=== PATIENT | male | born 1950 | race Caucasian/White ===

== ENCOUNTER 2021-02-14 16:46 | Observation (INO) | payer OTHER, BC ==
--- OUTSIDE RECORDS SUMMARY | 2021-02-14 16:54 | XMS REPORT | Continuity of Care Document ---
:1950 Author Organization [facility] t Address [address] [place] [address] Care Team Providers Name Role Phone Unavailable Unavailable Unavailable Problems Condition Condition Condition Status Onset Resolution Last Treating Co mments Source Name Details Category Date Date Treatment Clinician Date Pain in Pain in Diagnosis Active [facility] right [facility] shoulder shoulder l [facility] Acute gout Acute gout Problem Active [facility] left [facility] - knee, knee, [facility]oria unspecifie unspecifie l d cause d cause [facility] Impingemen Impingemen Diagnosis Active [facility] syndrome t syndrome Marzena kes - of right of right [facility] a shoulder shoulder l [facility] Acute pain Acute pain Problem Active [facility] left [facility] - knee knee [facility] Clinics Allergies, Adverse Reactions, Alerts Allergy Allergy Status Severity Reaction(s) Onset Inactive Treating Comm ents Source Name Type Date Date Clinician PCN Adverse Active Info Not [facility] Reaction Available [facility] Medications Ordered Filled Start Stop Current Ordering Indication Dosage Frequency Signature Comments Components Source Medication Medication Date Date Medication? Clinician (SIG) Name Name PredniSONE PredniSONE Yes Percy TAKE [address] [facility] TABLETS BY [facility] - MOUTH [facility] EVERY DAY l FOR 3 Outpati DAYS, 2 ent TABLETS Clinics DAILY FOR 3 DAYS, 1 TABLET DAILY FOR 3 DAYS Alprazolam Alprazolam Yes Percy (Schedule [facility] IV Drug) [facility] - TAKE 1 [facility]oria TABLET BY l MOUTH Outpati EVERY DAY ent NEEDED Clinics FOR ANXIETY Allopurinol Allopurinol Yes Percy [address] [facility] Clinics Metoprolol Metoprolol Yes Percy TAKE [address] [facility] Bright TABLET BY [facility] - ER ER MOUTH [facility] EVERY DAY l [facility] Telmisartan Telmisartan Yes Percy TAKE [address] [facility] TABLET BY [facility] - MOUTH [facility] EVERY DAY l [facility] ent Clinics Gabapentin Gabapentin Yes Percy TAKE [address] [facility] TABLET BY [facility] - MOUTH [facility] THREE l TIMES A [facility] DAY ent Clinics Procedures This patient has no known procedures. Encounters Start End Encounter Admission Attending Care Care Encounter Source Date/Time Date/Time Type Type Clinicians Facility Department ID 2019-03-31 2019-03-31 Outpatient Hakan Woods [id number] [facility] [address] 15[facility] 2019-03-04 2019-03-04 Outpatient Hakan Woods [id number] [address] 10:00:00 10:00:00 t [facility] - [facility] ent [facility] Results This patient has no known results.
--- NOTE | 2021-02-14 20:49 | RAD REPORT ---
EXAM DESCRIPTION: RAD - Chest Single View - 02/14/2021 8:41 pm CLINICAL HISTORY: COUGH COMPARISON: <Comparisons> FINDINGS: The left lung base is partially obscured. The heart size is within normal limits.No acute osseous abnormality. No significant pleural effusions or pneumothorax. IMPRESSION: Partial obscuration of the left lung base may be secondary to overlapping soft tissues/u nderpenetration versus an acute airspace process such as pneumonia.
--- NOTE | 2021-02-14 21:27 | RAD REPORT ---
EXAM DESCRIPTION: CT - Head C Spine Cap Wo Con - 02/14/2021 8:50 pm CLINICAL HISTORY: Trauma, head and neck injury. Chest, abdomen and pelvis pain. Pain;Weakness COMPARISON: No comparisons TECHNIQUE: CT head without contrast. CT cervical spine without contrast with coronal and sagittal reformatted images. CT chest, abdomen and pelvis without contrast with coronal and sagittal reformatted images of the spi ne. All CT scans are performed using dose optimization technique as appropriate and may include automated exposure control or mA/KV adjustment according to patient size. FINDINGS: CT HEAD WITHOUT CONTRAST: No intracranial hemorrhage, hydrocephalus or extra-axial fluid collection. No areas of brain edema o r midline shift. The paranasal sinuses and mastoids are clear. The calvarium is intact. CT CERVICAL SPINE WITHOUT CONTRAST: No fracture or subluxation. The prevertebral soft tissues are normal in thickness.Mild scattered mul tilevel cervical spondylosis with varying degrees of neural foraminal narrowing. No central spinal st enosis identified. CT CHEST, ABDOMEN, PELVIS WITHOUT CONTRAST: NOTE: Lack of contrast is a significant limitation in the assessment of trauma related findings. Spec ifically, solid organ, vascular and bowel evaluation is significantly limited. The lungs are clear.No pneumothorax or pericardial/pleural fluid. Coronary artery calcifications. No evidence of intra-abdominal visceral injury, free fluid or free air is seen within the above detai led limitations. Infrarenal abdominal aortic aneurysm measuring 4.1 centimeters. Absent left kidney. Prostatomegaly. Bladder thickening likely related to chronic bladder outlet obstruction. No concerning pelvic findings. No fractures. IMPRESSION: 1. Negative for acute traumatic findings within the above detailed limitations. 2. 4.1 centimeter infrarenal abdominal aortic aneurysm. Recommend 12 month follow-up CT to assess for stability.
--- NOTE | 2021-02-14 22:03 | RAD REPORT ---
EXAM DESCRIPTION: RAD - Knee Right 3 View - 02/14/2021 9:56 pm CLINICAL HISTORY: PAIN COMPARISON: No comparisons FINDINGS: No right knee fracture or malalignment identified. No knee effusion. No significant focal degenerative changes. IMPRESSION: No acute osseus abnormality involving the right knee.
[2021-02-14 22:11] LABS: Absolute Lymphocytes (CBC) 1.4 K/uL (0.7-4.9); Basophils % 0.7 % (0-1.3); Hematocrit 42.5 % (39.6-49.0); Lymphocytes % 26.9 % (15.3-44.8); MPV 7.3 fL (7.6-11.3); Protime INR 1.07
[2021-02-14 22:23] LABS: Urine Blood Negative (Negative); Urine Glucose Negative (Negative); Urine Protein Negative (Negative); Urine pH 5.5 (5.0-7.0)
[2021-02-14 22:26] LABS: ALT/SGPT 22 U/L (12-78); AST/SGOT 41 U/L (15-37); Albumin 3.4 g/dL (3.4-5.0); Alkaline Phosphatase 67 U/L (45-117); BUN Blood Urea Nitrogen 17 mg/dL (7-18); Bicarbonate 29 mmol/L (21-32); Bilirubin Direct 0.7 mg/dL (0-0.2); Bilirubin Total 1.4 mg/dL (0.2-1.0); Glucose Level 110 mg/dL (74-106); Magnesium 2.3 mg/dL (1.8-2.4); NT PRO-BNP 98 pg/mL (<125); Potassium 4.3 mmol/L (3.5-5.1); Protein, Total 7.6 g/dL (6.4-8.2); Sodium Level 136 mmol/L (136-145); Troponin (Emerg Dept Use Only) < 0.02 ng/mL (0.0-0.045)
--- NOTE | 2021-02-14 22:30 | EDPHYS ---
Physician Documentation [facility] Name: Maci West Age: 70 yrs Sex: Male : 1950 Arrival Date: 02/14/2021 Time: 16:51 Bed 16 Private MD: Orly Galindo H ED Physician Delio Vicente HPI: 02/14 20:31 This 70 yrs old Male presents to ER via Wheelchair with complaints of General izabel Weakness, Dizziness, imbalance, bowel problem. 20:31 The patient presents with dizziness, generalized weakness, feeling off balance. Onset: izabel The symptoms/episode began/occurred 1 month(s) ago. Context: occurred at an unknown location. Modifying factors: The symptoms are alleviated by nothing, the symptoms are aggravated by changing position. Associated signs and symptoms: Pertinent positives: right leg weakness. Severity of symptoms: At their worst the symptoms were mild in the emergency department the symptoms are unchanged. Patient's baseline: Neuro: alert and fully oriented, Motor: right leg weak x 1 month. The patient has experienced similar episodes in the past, several times. Historical: - Allergies: 17:06 PENICILLINS; hb - Immunization history:: Adult Immunizations up to date, Client reports receiving the 2nd dose of the Covid vaccine, Date received: September 2020. - Social history:: Smoking status: Patient denies any tobacco usage or history of. - Family history:: not pertinent. ROS: 20:31 Constitutional: Negative for fever, chills, and weight loss, Eyes: Negative for injury, izabel pain, redness, and discharge, ENT: Negative for injury, pain, and discharge, Neck: Negative for injury, pain, and swelling, Cardiovascular: Negative for chest pain, palpitations, and edema, Respiratory: Negative for shortness of breath, cough, wheezing, and pleuritic chest pain, Abdomen/GI: Negative for abdominal pain, nausea, vomiting, diarrhea, and constipation, Back: Negative for injury and pain, : Negative for injury, bleeding, discharge, and swelling, Skin: Negative for injury, rash, and discoloration, Psych: Negative for depression, anxiety, suicide ideation, homicidal ideation, and hallucinations, Allergy/Immunology: Negative for hives, rash, and allergies, Endocrine: Negative for neck swelling, polydipsia, polyuria, polyphagia, and marked weight changes, Hematologic/Lymphatic: Negative for swollen nodes, abnormal bleeding, and unusual bruising. 20:31 MS/extremity: Positive for decreased range of motion, of the right leg. 20:31 Neuro: Positive for dizziness, gait disturbance, weakness. Exam: 20:31 Constitutional: This is a well developed, well nourished patient who is awake, alert, izabel and in no acute distress. Head/Face: Normocephalic, atraumatic. Eyes: Pupils equal round and reactive to light, extra-ocular motions intact. Lids and lashes normal. Conjunctiva and sclera are non-icteric and not injected. Cornea within normal limits. Periorbital areas with no swelling, redness, or edema. ENT: Nares patent. No nasal discharge, no septal abnormalities noted. Tympanic membranes are normal and external auditory canals are clear. Oropharynx with no redness, swelling, or masses, exudates, or evidence of obstruction, uvula midline. Mucous membranes moist. Neck: Trachea midline, no thyromegaly or masses palpated, and no cervical lymphadenopathy. Supple, full range of motion without nuchal rigidity, or vertebral point tenderness. No Meningismus. Chest/axilla: Normal chest wall appearance and motion. Nontender with no deformity. No lesions are appreciated. Cardiovascular: Regular rate and rhythm with a normal S1 and S2. No gallops, murmurs, or rubs. Normal PMI, no JVD. No pulse deficits. Respiratory: Lungs have equal breath sounds bilaterally, clear to auscultation and percussion. No rales, rhonchi or wheezes noted. No increased work of breathing, no retractions or nasal flaring. Abdomen/GI: Soft, non-tender, with normal bowel sounds. No distension or tympany. No guarding or rebound. No evidence of tenderness throughout. Back: No spinal tenderness. No costovertebral tenderness. Full range of motion. Skin: Warm, dry with normal turgor. Normal color with no rashes, no lesions, and no evidence of cellulitis. MS/ Extremity: Pulses equal, no cyanosis. Neurovascular intact. Full, normal range of motion. Neuro: Awake and alert, GCS 15, oriented to person, place, time, and situation. Cranial nerves II-XII grossly intact. Motor strength 5/5 in all extremities. Sensory grossly intact. Cerebellar exam normal. Normal gait. Psych: Awake, alert, with orientation to person, place and time. Behavior, mood, and affect are within normal limits. 20:31 Neuro: Orientation: is normal, appropriate for stated age, no acute changes, Mentation: is normal, appropriate for stated age, no acute changes, Memory: is normal, appropriate for stated age, no acute changes, Cranial nerves: grossly normal, is grossly normal based on the patient's age, no acute changes, Cerebellar function: is grossly normal, is grossly normal based on the patient's age, no acute changes, Motor: is normal, is grossly normal based on the patient's age, Sensation: is normal, no obvious gross deficits, appropriate Gait: not tested. seizure activity, is not displayed by the patient. 22:24 ECG was reviewed by the Attending Physician. [facility] Vital Signs: 17:03 BP 98 / 70; Pulse 88; Resp 16; Temp 97.1; Pulse Ox 100% on R/A; Weight 92.99 kg; Height hb 5 ft. 9 in. (175.26 cm); Pain 6/10; 20:18 BP 128 / 90; Pulse 86; Resp 18; Pulse Ox 100% ; Pain 0/10; ld1 23:00 BP 141 / 93; Pulse 64; Resp 15; Pulse Ox 100% on R/A; bs2 02/15 01:00 BP 128 / 81; Pulse 64; Resp 15; Pulse Ox 98% ; bs2 06:01 BP 145 / 81 RA Supine (auto/lg); Pulse 71 MON; Resp 15 S; Temp 98.4(O); Pulse Ox 100% bs2 on R/A; Pain 7/10; 02/14 17:03 Body Mass Index 30.27 (92.99 kg, 175.26 cm) NIH Stroke Scale Scores: 02/14 20:45 NIHSS Score: 2 izabel [place] Coma Score: 20:45 Eye Response: spontaneous(4). Verbal Response: oriented(5). Motor Response: obeys izabel commands(6). Total: 15. MDM: 20:14 Patient medically screened. izabel 20:34 Differential diagnosis: cardiac arrhythmia, CVA, generalized weakness, head injury, izabel idiopathic dizziness, near-syncope, TIA. Data reviewed: vital signs, nurses notes, lab test result(s), EKG, radiologic studies, CT scan, plain films. Data interpreted: quality assurance monitor final: rate is 86 beats/min, rhythm is regular, Pulse oximetry: on room air is 100 %. Test interpretation: by ED physician or midlevel provider: ECG, plain radiologic studies. Counseling: I had a detailed discussion with the patient and/or guardian regarding: the historical points, exam findings, and any diagnostic results supporting the discharge/admit diagnosis, lab results, radiology results, the need for further work-up and treatment in the hospital. 02/14 20:31 Order name: Basic Metabolic Panel [facility] 02/14 20:31 Order name: CBC with Diff [facility] 02/14 20:31 Order name: LFT's [facility] 02/14 20:31 Order name: Magnesium; Complete Time: 22:29 [facility] 02/14 20:31 Order name: NT PRO-BNP; Complete Time: 22:29 [facility] 02/14 20:31 Order name: PT-INR [facility] 02/14 20:31 Order name: Troponin (emerg Dept Use Only); Complete Time: 22:29 [facility] 02/14 20:31 Order name: Urinalysis [facility] 02/14 20:31 Order name: Basic Metabolic Panel; Complete Time: 22:29 [facility] 02/14 20:31 Order name: CBC with Automated Diff [facility] 02/14 20:31 Order name: Liver (Hepatic) Function; Complete Time: 22:29 [facility] 02/14 20:44 Order name: COVID-19 : Document "Date of Symptom Onset" if Symptomatic. [facility] 02/14 21:16 Order name: Blood Culture Adult (2) [facility] 02/14 20:31 Order name: XRAY Chest (1 view); Complete Time: 21:15 [facility] 02/14 20:31 Order name: CT Traumagram (Head C Spine CAP wo con); Complete Time: 21:38 [facility] 02/14 21:16 Order name: Lactate [facility] 02/14 21:17 Order name: Blood Culture [facility] 02/14 21:17 Order name: Lactate; Complete Time: 22:25 [facility] 02/14 22:23 Order name: Urine Dipstick-Ancillary; Complete Time: 22:25 [facility] 02/14 23:08 Order name: SARS-COV-2 RT PCR [facility] 02/15 02:17 Order name: CBC with Automated Diff [facility] 02/15 03:25 Order name: T4 Free [facility] 02/15 03:25 Order name: Thyroid Stimulating Hormone [facility] 02/15 03:38 Order name: Comprehensive Metabolic Panel [facility] 02/15 03:38 Order name: Phosphorus [facility] 02/15 03:38 Order name: Lipid Profile [facility] 02/15 03:38 Order name: Magnesium [facility] 02/15 03:38 Order name: Folic Acid, (Folate) [facility] 02/15 03:38 Order name: Vitamin B12 Level [facility] 02/14 20:31 Order name: EKG; Complete Time: 20:31 [facility] 02/14 20:31 Order name: Cardiac monitoring; Complete Time: 22:24 [facility] 02/14 20:31 Order name: EKG - Nurse/Tech; Complete Time: 22:24 [facility] 02/14 20:31 Order name: IV Saline Lock; Complete Time: 22:24 [facility] 02/14 20:31 Order name: Labs collected and sent; Complete Time: 22:24 02/14 20:31 Order name: O2 Per Protocol; Complete Time: 22:24 [facility] 02/14 20:31 Order name: O2 Sat Monitoring; Complete Time: 22:24 [facility] 02/14 20:31 Order name: Urine Dipstick-Ancillary (obtain specimen); Complete Time: 22:23 [facility] 02/14 21:14 Order name: Knee Right 3 View XRAY; Complete Time: 22:25 [facility] 02/14 21:14 Order name: Ice pack; Complete Time: 22:24 [facility] 02/15 00:55 Order name: CONS Physician Consult [facility] 02/15 10:42 Order name: MRI [facility] 02/15 10:47 Order name: MRI [facility] EC:24 Rate is 62 beats/min. Rhythm is regular. QRS Anderson is Normal. VT interval is normal. QRS izabel interval is normal. QT interval is normal. No Q waves. T waves are Normal. No ST changes noted. Clinical impression: NSR w/ Non-specific ST/T Changes and No evidence of ischemia. Interpreted by me. Reviewed by me. Administered Medications: 22:40 Drug: NS 0.9% 1000 ml Route: IV; Rate: 1 bolus; Site: left antecubital; ld1 02/15 04:43 Follow up: IV Status: Completed infusion; IV Intake: 1000ml bs2 02/14 22:40 Drug: foLIC Acid 1 mg Route: IVPB; Site: left antecubital; 02/15 04:43 Follow up: IV Status: Completed infusion 2 02/14 22:40 Drug: Thiamine 100 mg Route: IV; Rate: bolus; Site: left antecubital; 02/15 04:42 Follow up: IV Status: Completed infusion 2 02/14 22:40 Drug: levofloxacin 500 mg Volume: 100 ml; Route: IVPB; Infused Over: 60 mins; Site: ld1 left antecubital; 02/15 04:42 Follow up: IV Status: Completed infusion; IV Intake: 100ml [facility] 02/14 23:20 Drug: Zofran (Ondansetron) 4 mg Route: IVP; Site: left antecubital; 02/15 04:42 Follow up: Response: No adverse reaction [facility] 02/14 23:21 Drug: morphine 4 mg Route: IVP; Site: left antecubital; 02/15 04:42 Follow up: Response: No adverse reaction 2 Disposition Summary: 02/14/21 22:29 Hospitalization Ordered Hospitalization Status: Observation izabel Provider: Shaun Caraballo cha Condition: Fair izabel Problem: new izabel Symptoms: have improved izabel Bed/Room Type: Standard izabel Location: [facility] ER HOLD(02/15/21 00:59) cg Room Assignment: ERHOLD-(02/15/21 00:59) cg Diagnosis - Weakness - right leg, sub acute izabel - Repeated falls izabel - Alcohol abuse izabel - Dizziness and giddiness izabel Forms: - Medication Reconciliation Form izabel - SBAR form izabel NIH Stroke Scale - NIH Stroke Score Date: 02/14/2021 Time: 20:45 Total Score = 2 1a. Level of Consciousness (LOC) - 0(Alert) 1b. Level of Consciousness (LOC) (Month \\T\\ Age) - 0(Both) 1c. LOC Commands (Open \\T\\ Closes Eyes/Hematologist) - 0(Both) 2. Best Gaze (Lateral Gaze Paresis) - 0(Normal) 3. Visual Field Loss - 0(No visual loss) 4. Facial Palsy - 0(Normal) 5a. Left Arm: Motor (10-second hold) - 0(No drift) 5b. Right Arm: Motor (10-second hold) - 0(No drift) 6a. Left Leg: Motor (5-second hold - always test supine) - 0(No drift) 6b. Right Leg: Motor (5-second hold - always test supine) - 1(Drift) 7. Limb Ataxia (finger/nose \\T\\ heel/musa - test with eyes open) - 1(Present in one limb) 8. Sensory Loss (pinprick arms/legs/face) - 0(Normal) 9. Best Language: Aphasia (description/naming/reading) - 0(No aphasia) 10. Dysarthria (speech clarity - read or repeat words) - 0(Normal) 11. Extinction and Inattention (visual/tactile/auditory/spatial/personal) - 0(No abnormality) Initials: [facility] Signatures: Dispatcher [employer] [facility] Delio Vicente MD MD cha Garcia, Cindy, RN RN Deisi Burns RN RN Michelle Puente RN RN ld1 Roslaia Menard RN bs2 Corrections: (The following items were deleted from the chart) 02/14 22:05 20:44 CORONAVIRUS ordered. [facility] 02/15 00:59 02/14 22:29 Telemetry/MedSurg (observation) [facility] 02/15 00:59 02/14 22:29 [facility]
--- NOTE | 2021-02-14 22:30 | ER ---
Nurse's Notes [facility] Name: Maci West Age: 70 yrs Sex: Male : 1950 Arrival Date: 02/14/2021 Time: 16:51 Bed 16 Private MD: Orly Galindo H Diagnosis: Weakness-right leg, sub acute;Repeated falls;Alcohol abuse;Dizziness and giddiness Presentation: 02/14 17:03 Chief complaint: Generalized weakness, dizziness, and frequent falls x 4 weeks, hb weakness is worse in right leg. Denies numbness/tingling. VAN negative. Coronavirus screen: At this time, the client does not indicate any symptoms associated with coronavirus-19. Ebola Screen: No symptoms or risks identified at this time. Risk Assessment: Do you want to hurt yourself or someone else? Patient reports no desire to harm self or others. Onset of symptoms was January 2021. 17:03 Method Of Arrival: Wheelchair hb 17:03 Acuity: HANANE 3 hb 02/15 04:41 Initial Sepsis Screen: Does the patient meet any 2 criteria? No. Patient's initial bs2 sepsis screen is negative. Does the patient have a suspected source of infection? No. Patient's initial sepsis screen is negative. Historical: - Allergies: 02/14 17:06 PENICILLINS; hb - Immunization history:: Adult Immunizations up to date, Client reports receiving the 2nd dose of the Covid vaccine, Date received: September 2020. - Social history:: Smoking status: Patient denies any tobacco usage or history of. - Family history:: not pertinent. Screenin:18 Abuse screen: Denies threats or abuse. Denies injuries from another. Nutritional ld1 screening: No deficits noted. Tuberculosis screening: No symptoms or risk factors identified. Fall Risk None identified. Assessment: 20:18 General: Appears in no apparent distress. comfortable, Behavior is calm, cooperative, ld1 appropriate for age. Pain: Denies pain. Neuro: Level of Consciousness is awake, alert, obeys commands, Oriented to person, place, time, situation. Cardiovascular: Capillary refill < 3 seconds Patient's skin is warm and dry. Respiratory: Airway is patent Respiratory effort is even, unlabored, Respiratory pattern is regular, symmetrical. GI: Abdomen is round non-distended. : No signs and/or symptoms were reported regarding the genitourinary system. EENT: No signs and/or symptoms were reported regarding the EENT system. Derm: No signs and/or symptoms reported regarding the dermatologic system. Musculoskeletal: Reports weakness in right leg and left leg. Vital Signs: 17:03 BP 98 / 70; Pulse 88; Resp 16; Temp 97.1; Pulse Ox 100% on R/A; Weight 92.99 kg; Height hb 5 ft. 9 in. (175.26 cm); Pain 6/10; 20:18 BP 128 / 90; Pulse 86; Resp 18; Pulse Ox 100% ; Pain 0/10; ld1 23:00 BP 141 / 93; Pulse 64; Resp 15; Pulse Ox 100% on R/A; bs2 02/15 01:00 BP 128 / 81; Pulse 64; Resp 15; Pulse Ox 98% ; bs2 06:01 BP 145 / 81 RA Supine (auto/lg); Pulse 71 MON; Resp 15 S; Temp 98.4(O); Pulse Ox 100% bs2 on R/A; Pain 7/10; 02/14 17:03 Body Mass Index 30.27 (92.99 kg, 175.26 cm) hb Cathleen Coma Score: 02/14 20:45 Eye Response: spontaneous(4). Verbal Response: oriented(5). Motor Response: obeys izabel commands(6). Total: 15. NIH Stroke Scale Scores: 20:45 NIHSS Score: 2 izabel ED Course: 16:51 Patient arrived in ED. am2 16:52 Orly Galindo DO is Private Physician. am2 17:05 Triage completed. hb 17:06 Arm band placed on. hb 20:11 Rosalia Menard, RN is Primary Nurse. bs2 20:14 Delio Vicente MD is Attending Physician. izabel 20:18 Patient has correct armband on for positive identification. Placed in gown. Bed in low ld1 position. Call light in reach. Side rails up X2. monitor worker on. Pulse ox on. NIBP on. Door closed. Noise minimized. Warm blanket given. 20:18 No provider procedures requiring assistance completed. ld1 20:42 XRAY Chest (1 view) In Process Unspecified. EDMS 20:50 CT Traumagram (Head C Spine CAP wo con) In Process Unspecified. EDMS 21:56 Knee Right 3 View XRAY In Process Unspecified. EDMS 22:23 Lactate Sent. bs2 22:23 Blood Culture Sent. bs2 22:23 Lactate Sent. bs2 22:23 Blood Culture Adult (2) Sent. bs2 22:23 COVID-19 : Document "Date of Symptom Onset" if Symptomatic. Sent. bs2 22:23 Basic Metabolic Panel Sent. bs2 22:23 CBC with Automated Diff Sent. bs2 22:23 Liver (Hepatic) Function Sent. bs2 22:23 Urinalysis Sent. bs2 22:23 Basic Metabolic Panel Sent. bs2 22:23 CBC with Diff Sent. bs2 22:24 LFT's Sent. bs2 22:24 Magnesium Sent. bs2 22:24 NT PRO-BNP Sent. bs2 22:24 PT-INR Sent. bs2 22:24 Troponin (emerg Dept Use Only) Sent. bs2 22:24 Inserted saline lock: 18 gauge in left antecubital area, using aseptic technique. Blood bs2 collected. 22:26 Shaun Caraballo is Hospitalizing Provider. [facility] 02/15 17:33 IV discontinued, intact, bleeding controlled, No redness/swelling at site. Pressure ap3 dressing applied. Administered Medications: 02/14 22:40 Drug: NS 0.9% 1000 ml Route: IV; Rate: 1 bolus; Site: left antecubital; 02/15 04:43 Follow up: IV Status: Completed infusion; IV Intake: 1000ml [facility] 02/14 22:40 Drug: foLIC Acid 1 mg Route: IVPB; Site: left antecubital; 02/15 04:43 Follow up: IV Status: Completed infusion [facility] 02/14 22:40 Drug: Thiamine 100 mg Route: IV; Rate: bolus; Site: left antecubital; 02/15 04:42 Follow up: IV Status: Completed infusion [facility] 02/14 22:40 Drug: levofloxacin 500 mg Volume: 100 ml; Route: IVPB; Infused Over: 60 mins; Site: ld left antecubital; 02/15 04:42 Follow up: IV Status: Completed infusion; IV Intake: 100ml [facility] 02/14 23:20 Drug: Zofran (Ondansetron) 4 mg Route: IVP; Site: left antecubital; ld1 02/15 04:42 Follow up: Response: No adverse reaction bs2 02/14 23:21 Drug: morphine 4 mg Route: IVP; Site: left antecubital; ld1 02/15 04:42 Follow up: Response: No adverse reaction bs2 Intake: 04:42 IV: 100ml; Total: 100ml. bs2 04:43 IV: 1000ml; Total: 1100ml. bs2 Outcome: 02/14 22:29 Decision to Hospitalize by Provider. [facility] 02/15 17:33 Discharged to home via wheelchair, with family. ap3 Condition: good Discharge instructions given to patient, family, Instructed on discharge instructions, follow up and referral plans. medication usage, Demonstrated understanding of instructions, follow-up care, medications. 17:33 Patient left the ED. ap3 NIH Stroke Scale - NIH Stroke Score Date: 02/14/2021 Time: 20:45 Total Score = 2 1a. Level of Consciousness (LOC) - 0(Alert) 1b. Level of Consciousness (LOC) (Month \\T\\ Age) - 0(Both) 1c. LOC Commands (Open \\T\\ Closes Eyes/Director Of Vocational Guidance) - 0(Both) 2. Best Gaze (Lateral Gaze Paresis) - 0(Normal) 3. Visual Field Loss - 0(No visual loss) 4. Facial Palsy - 0(Normal) 5a. Left Arm: Motor (10-second hold) - 0(No drift) 5b. Right Arm: Motor (10-second hold) - 0(No drift) 6a. Left Leg: Motor (5-second hold - always test supine) - 0(No drift) 6b. Right Leg: Motor (5-second hold - always test supine) - 1(Drift) 7. Limb Ataxia (finger/nose \\T\\ heel/musa - test with eyes open) - 1(Present in one limb) 8. Sensory Loss (pinprick arms/legs/face) - 0(Normal) 9. Best Language: Aphasia (description/naming/reading) - 0(No aphasia) 10. Dysarthria (speech clarity - read or repeat words) - 0(Normal) 11. Extinction and Inattention (visual/tactile/auditory/spatial/personal) - 0(No abnormality) Initials: [facility] Signatures: Dispatcher [employer] EDMS Delio Vicente MD MD cha Baxter, Heather, RN RN hb Vesta Macario am2 Vesta Kerr, RN RN ap3 Michelle Puente, RN RN ld1 Rosalia Menard RN RN bs2
[2021-02-14 22:31] LABS: Urine Appearance CLEAR (Clear); Urine Bilirubin NEGATIVE (Negative); Urine Blood NEGATIVE (Negative); Urine Color YELLOW (Yellow); Urine Glucose NEGATIVE (Negative); Urine Protein NEGATIVE (Negative)
[2021-02-14 22:37] LABS: Urine Microscopic Reflex NO UMIC
[2021-02-14] MEDS ORDERED: Levofloxacin500mg IV 500 MG/100 ML BAG IV ONE (22:48)
[2021-02-14] MEDS ORDERED: THIAMINE 200 MG/2 ML INJ ONE (22:48)
[2021-02-14] MEDS ORDERED: NA CHLORIDE 0.9% 1,000 ML ONE (22:49)
[2021-02-14] MEDS ORDERED: FOLIC ACID 5 MG/ML VIAL ONE (22:49)
[2021-02-14] MEDS ORDERED: ONDANSETRON 4 MG/2 ML VIAL ONE (23:37)
[2021-02-14] MEDS ORDERED: MORPHINE 4 MG/ML SYR ONE (23:37)
[2021-02-15] MEDS ORDERED: ACETAMINOPHEN 500 MG TAB PO PRN (01:35)
[2021-02-15] MEDS ORDERED: ONDANSETRON 4 MG/2 ML VIAL IV PRN (01:35)
[2021-02-15] MEDS ORDERED: LORazepam 2 MG/ML VIAL IV PRN (01:35)
[2021-02-15 02:08] LABS: Absolute Lymphocytes (CBC) 1.5 K/uL (0.7-4.9); Basophils % 0.9 % (0-1.3); Hematocrit 40.5 % (39.6-49.0); Lymphocytes % 28.1 % (15.3-44.8); MPV 7.7 fL (7.6-11.3); RBC Red Blood Cell Count 3.99 M/uL (4.33-5.43)
[2021-02-15 02:43] VITALS: O2SAT 97
[2021-02-15 03:25] LABS: Thyroid Stimulating Hormone 5.59 uIU/mL (0.360-3.740)
[2021-02-15 03:38] LABS: Bilirubin Total 1.2 mg/dL (0.2-1.0); Folic Acid, (Folate) 13.3 ng/mL (3.1-17.5); Magnesium 2.2 mg/dL (1.8-2.4); Phosphorus 3.2 mg/dL (2.5-4.9); Potassium 4.2 mmol/L (3.5-5.1); Protein, Total 6.9 g/dL (6.4-8.2)
--- NOTE | 2021-02-15 04:10 | P.HP ---
Certification for Inpatient Patient admitted to: Observation With expected LOS: <2 Midnights Patient will require the following post-hospital care: None Practitioner: I am a practitioner with admitting privileges, knowledge of patient current condition, hospital course, and medical plan of care. Services: Services provided to patient in accordance with Admission requirements found in Title 42 Section 412.3 of the Code of Federal Regulations Patient History Date of Service: 02/15/21 Reason for admission: R Leg Weakness History of Present Illness: Mr. West is a 70 yo M with HTN and CKD and alcohol use disorder here today for 2 months of R leg weakness, imbalance and recurrent falls. Says he last fell 3 days ago. Family member found him with a bump on his head. He did not recall falling. She says he has fallen at least three times in the past week. He reports numbness and tingling in his feet for which he takes gabapentin. He reports poor appetite. Denies systemic symptoms. Says he stopped drinking alcohol a few days ago, but before was a heavy drinker. Allergies Penicillins Allergy (Verified 02/15/21 01:35) Hives/Rash - Past Medical/Surgical History -: CKD -: HTN -: alcohol abuse -: nephrectomy -: cataract surgery - Family History Father -: Hypertension - Social History Smoking Status: Never smoker Alcohol use: Yes CD- Drugs: No Caffeine use: No Place of Residence: Home Review of Systems 10-point ROS is otherwise unremarkable Neurological: Weakness, Incoordination Physical Examination - Physical Exam General: Alert, In no apparent distress HEENT: Atraumatic, PERRLA, Mucous membr. moist/pink, EOMI, Sclerae nonicteric Neck: Supple, 2+ carotid pulse no bruit, No LAD, Without JVD or thyroid abnormality Respiratory: Clear to auscultation bilaterally, Normal air movement Cardiovascular: Regular rate/rhythm, Normal S1 S2 Gastrointestinal: Normal bowel sounds, No tenderness Musculoskeletal: No clubbing, No swelling, No contractures, No erythema, No warmth, Tenderness, Other (right patellar edema) Integumentary: No rashes Neurological: Normal speech, Normal tone, Sensation intact, Cranial nerves 3-12 intact, Normal affect, Abnormal gait, Abnormal strength Lymphatics: No axilla or inguinal lymphadenopathy - Studies Laboratory Data (last 24 hrs) 02/14/21 21:50: PT 12.3, INR 1.07 07/13/21 21:50: WBC 5.10, Hgb 14.4, Hct 42.5, Plt Count 178 02/14/21 21:50: Sodium 136, Potassium 4.3, BUN 17, Creatinine 1.24, Glucose 110 H, Magnesium 2.3, Total Bilirubin 1.4 H, AST 41 H, ALT 22, Alkaline Phosphatase 67 Assessment and Plan - Plan Assessment R Leg Weakness, Recurrent Falls HTN CKD Alcohol Use Disorder Plan R Leg Weakness, Recurrent Falls - neurology consulted, MRI pending, PT cosnulted HTN - stable, continue to monitor CKD - stable, continue to monitor Alcohol Use Disorder - CIWA protocol, Ativan PRN, thiamine/b12/folate pending Discharge Plan: Home Plan to discharge in: 24 Hours - Advance Directives Does patient have a Living Will: No Does patient have a Durable POA for Healthcare: No - Code Status/Comfort Care Code Status Assessed: Yes (full code ) Critical Care: No Time Spent Managing Pts Care (In Minutes): 70
[2021-02-15] MEDS ORDERED: ENOXAPARIN 40 MG/0.4 ML SQ ONE (08:20)
[2021-02-15] MEDS ORDERED: ACETAMINOPHEN 500 MG TAB ONE (08:29)
[2021-02-15 08:38] VITALS: BMI 30.2
[2021-02-15] MEDS ORDERED: ENOXAPARIN 40 MG/0.4 ML SQ SCH (09:00)
[2021-02-15] MEDS ORDERED: MORPHINE 2 MG/ML SYR IV PRN (10:39)
--- NOTE | 2021-02-15 10:40 | RAD REPORT ---
EXAM DESCRIPTION: MRI - Brain Wo Cont - 02/15/2021 9:37 am CLINICAL HISTORY: unilateral weakness, right leg weakness COMPARISON: Head C Spine Cap Wo Con dated 02/14/2021 TECHNIQUE: Sagittal T1-weighted images were obtained along with axial PD, heavily T2-weighted and T2 -FLAIR images. Axial DWI and ADC mapping sequences were also obtained along with coronal heavily T2-w eighted images. FINDINGS: No intracranial hemorrhage, mass or acute infarction. There is no edema or shift of midlin e structures. No extra-axial fluid collections. Howell-matter/white matter junction is preserved. Signa l voids are seen as a normal finding in the major intracranial vessels. Patient has mild atrophy change with ventricles in proportion. Very minimal cerebral chronic ischemic changes noted. No sella or supra sella abnormality. No globe or orbital content acute finding. Mastoid air cells and paranasal sinuses are clear. IMPRESSION: No infarction, mass, hemorrhage or other acute intracranial finding.
--- NOTE | 2021-02-15 10:47 | RAD REPORT ---
EXAM DESCRIPTION: MRI - Lumbar Spine Lenora Weinberg - 02/15/2021 9:53 am CLINICAL HISTORY: unilateral weakness COMPARISON: No comparisons TECHNIQUE: Sagittal T1-weighted, T2-weighted and T2-STIR weighted sequences were obtained. Axial T1 -weighted and heavily T2-weighted sequenceswere obtained through the lumbar disc levels. FINDINGS: Lumbar bodies are normal in height and alignment. No suspicious marrow signal. No paraspi nal masses. Conus is normal with no clumping or thickening of the cauda equina. T12-L1 level: No significant findings. L1-2 level: No significant findings. L2-3 level: Mild disc desiccation. No other significant finding. L3-4 level: No herniation. Mild foraminal disc bulge changes are present without significant stenosis . L4-5 level: No herniation or disc bulge in the central canal. Mild foraminal disc bulge changes are p resent without spinal stenosis. Prominent facet joint degenerative changes are present. L5-S1 level: Mild facet joint degenerative change. No canal or foramen stenosis. IMPRESSION: No disc herniation or specific finding that would explain right leg symptoms. Patient has areas of foraminal disc bulge that do not result in any significant degree of foraminal s tenosis. Prominent degenerative changes are present in the facet joints at L4-5.
--- NOTE | 2021-02-15 12:40 | EKG ---
Test Date: 2021-02-14 Test Time: 22:13:56 Relationship Management Lead: KWAKU MEASUREMENT RESULTS: Intervals: Rate: 62 AK: 202 QRSD: 70 QT: 412 QTc: 418 Burns: P: 95 AK: 202 QRS: -19 T: 7 INTERPRETIVE STATEMENTS: Normal sinus rhythm Inferior infarct, age undetermined Abnormal ECG Compared to ECG 09/22/2002 16:17:00 Myocardial infarct finding now present Electronically Signed On 02-15-21 12:37:29 CDT by Skip Mendieta
[2021-02-15] MEDS ORDERED: MORPHINE 2 MG/ML SYR ONE (12:43)
[2021-02-15] MEDS ORDERED: ONDANSETRON 4 MG/2 ML VIAL ONE (12:43)
[2021-02-15 16:21] VITALS: BP 125/90; TEMP 98.2
--- NOTE | 2021-02-16 00:38 | CON ---
Patient's Complaint: Suddenly right leg gave out and he fell. History Of Present Illness: The emergency room notes does suggest generalized weakness and bladder p roblems. However, he did not report that as I interviewed him. Symptoms, he said occurred on walkin g and he then fell very hard onto the right knee. Had a significant bruise on the right anterior akbar n just below the knee and had pain in that area. He came to [facility] where workup for tra sandy series including head, cervical spine, chest showed no acute traumatic findings. He did have a 4 cm infrarenal abdominal aortic aneurysm with recommendation of 12-month followup. Subsequent brain MRI rule out presence of an acute ischemic or hemorrhagic stroke. A lumbar spine MRI showed no disk herniation or specific findings explaining his right leg weakness. There was prominent degenerative changes seen in the facets at L4-5, but no significant degree of foraminal stenosis identified. He h ad a knee x-ray on the right that showed no fracture. No acute osseous abnormality. The patient does report some moderate pain in the right anterior knee, but it has improved somewhat. It should be noted that the hospitalist when he interviewed the patient, the patient reports 2 months of right leg intermittent weakness with recurrent falls and had been taking gabapentin for periphera l neuropathy and he also was drinking alcohol in the past, was a heavy drinker. Past Medical History: Chronic kidney disease, hypertension, chronic alcohol use. Surgical History: Nephrectomy and cataract surgery. Allergies: PENICILLIN. Family History: Hypertension in father. Social History: Denies smoking tobacco cigarettes, but uses alcohol on a regular basis. Medications: He is receiving in the hospital medication for pain, nausea along with folic acid, Love nox for DVT prophylaxis. Review of Systems: As noted, he has had some right-sided leg weakness and imbalance for several weeks. Has been alcohol user for quite a while. Denies being drunk during these episodes of falls. Physical Examination: Vital Signs: Blood pressure 135/90, pulse 74, respiratory rate 16, temperature 98.2, oxygen saturati on 98% room air, weight 204 pounds, height 5 feet 9 inches. GENERAL: Mr. West is resting in bed, in no acute distress. HEENT: He is normocephalic, atraumatic. Sclerae anicteric. Oropharynx pink and moist. Neck: Supple. Chest: Clear. Heart: Regular. Extremities: Show in the right anterior knee, an area of about 4 cm swelling with red abrasion to th e anterior musa just below the knee. He otherwise is atraumatic and no edema in the extremities. Neurological: Exam shows no focal deficits in upper or lower extremities. He does have giveaway eff ort in the right lower extremity because of pain at the knee, but he can lift his leg off the bed, ca n lift his heel, can bend his knee. He does not have sensory loss or asymmetry in reflexes. No sign ificant coordination difficulties. Assessment: Mr. West is a 70-year-old patient with reported intermittent right leg giving way of unclear etiology. It may be possible he has a mild myopathy, although it is asymmetric as the left l eg is normal. That may be related to chronic alcohol use. However, his liver function studies [facility] show just very mild elevation of AST of around 41, normal alkaline phosphatase and normal ALT. His brain MRI and lumbar spine MRI show no evidence of acute stroke or spinal cord or nerve root co mpression. Plan: Patient should stop drinking alcohol. Take thiamine, folate, multivitamin daily. Take aspiri n 81 mg daily and may benefit from an EMG nerve conduction study of the extremities along with possib le muscle biopsy to rule out a myopathy as the cause of his falls since the central etiologies have been ruled out. Patient may be discharged home and follow up in Dr[facility] Renate [facility] clinic 1 month later. MIKE/RANDAL Voice ID: [id number] Report ID: [id number]
== END 2021-02-15 17:08 | disposition home or self-care (01) ==
LOC: ER 16:46 → ERHOLD 02-15 00:54
PROVIDERS: ADMIT Hospitalist; ATTEND Hospitalist
DX: R53.1 Weakness (principal); F10.10 Alcohol abuse, uncomplicated; R42 Dizziness and giddiness; M25.561 Pain in right knee; I12.9 Hypertensive chronic kidney disease with stage 1 through stage 4 chronic kidney disease, or unspecified chronic kidney disease; N18.9 Chronic kidney disease, unspecified; R11.0 Nausea; I71.4 Abdominal aortic aneurysm, without rupture; G62.9 Polyneuropathy, unspecified; Z91.81 History of falling; Z88.0 Allergy status to penicillin; Z90.5 Acquired absence of kidney; Z82.49 Family history of ischemic heart disease and other diseases of the circulatory system
CPT/HCPCS: 93005; 87040 ×2; 85025 ×2; 80048; 36415; 83735 ×2; 84100; 85610; 80061; 80076; 83605; 84443; 81003 ×2; 84484; 84439; 82746; 82607; 80053; 84425; 83880; 70450; 71250; 72125; 71045; 73562; 70551; 72148; 97116; 97161; 97530; 94760 ×2; U0003; J3411; J1650; J2270; J7030; J2405 ×2; G0378